=== PATIENT | female | born 1970 | race Caucasian/White ===

== ENCOUNTER 2017-12-26 07:54 | Day surgery (SDC) | payer BC, SELFPAY ==
[2017-12-26] VITALS (7 sets, daily range): BP systolic 97–108; BP diastolic 59–70; PULSE 81–87; RESP 16–18; TEMP 36.5–36.7; O2SAT 99–100; BMI 34.0
[2017-12-26 08:36] LABS: Bedside Glucose 84 mg/dL (70-110)
--- NOTE | 2017-12-26 09:16 | PCM.OPRPT ---
Problem List (1) Left lower quadrant pain Status: Acute Report of Operation Date of Procedure: 12/26/17 Pre-Operative Diagnosis: R10.32 left lower quadrant abdominal pain Post-Operative Diagnosis: Same Surgery/Procedure Performed:: [id number] colonoscopy Type of Anesthesia:: MAC Anesthesiologist: Basilio Muñiz Description of Procedure: Patient was brought into the endoscopy suite and placed in the left lateral decubitus position. Patient was given graded anesthesia. Scope was inserted into the rectum. The scope was directed through the sigmoid colon, descending colon, transverse colon, ascending colon, to the cecum. Operative findings: 1. Cecum: Normal appearance no mass lesions normal ileocecal valve. 2. Ascending colon: Normal appearance no mass lesions. 3. Transverse colon: Normal appearance no mass lesions. 4. descending colon: Normal appearance no mass lesions. 5. Sigmoid colon: Normal appearance no mass lesions. 6. Rectum: Normal appearance no mass lesions retroflexion did show some internal hemorrhoids no masses are identified. Digital rectal exam was performed showing no masses within the anus. Patient will need to have another colonoscopy in 10 years. - Admit VTE Documentation VTE Present on Admission: No VTE Mechan Device Prophylaxis: None VTE Pharm Prophylaxis ordered?: No
--- NOTE | 2017-12-26 09:19 | OP.PCM_ITS ---
Problem List (1) Left lower quadrant pain Status: Acute Report of Operation Date of Procedure: 12/26/17 Pre-Operative Diagnosis: R10.32 left lower quadrant abdominal pain Post-Operative Diagnosis: Same Surgery/Procedure Performed:: [id number] colonoscopy Type of Anesthesia:: MAC Anesthesiologist: Basilio Muñiz Description of Procedure: Patient was brought into the endoscopy suite and placed in the left lateral decubitus position. Patient was given graded anesthesia. Scope was inserted into the rectum. The scope was directed through the sigmoid colon, descending colon, transverse colon, ascending colon, to the cecum. Operative findings: 1. Cecum: Normal appearance no mass lesions normal ileocecal valve. 2. Ascending colon: Normal appearance no mass lesions. 3. Transverse colon: Normal appearance no mass lesions. 4. descending colon: Normal appearance no mass lesions. 5. Sigmoid colon: Normal appearance no mass lesions. 6. Rectum: Normal appearance no mass lesions retroflexion did show some internal hemorrhoids no masses are identified. Digital rectal exam was performed showing no masses within the anus. Patient will need to have another colonoscopy in 10 years. - Admit VTE Documentation VTE Present on Admission: No VTE Mechan Device Prophylaxis: None VTE Pharm Prophylaxis ordered?: No
== END 2017-12-26 09:54 | disposition home or self-care (01) ==
LOC: EN 07:56 → AC 07:57
PROVIDERS: Family Provider Internal Medicine; PCP Internal Medicine; Visit Provider Surgery
PROC: 0DJD8ZZ Inspection of Lower Intestinal Tract, Via Natural or Artificial Opening Endoscopic (ICD-10-PCS; CPT 45378; principal; 2017-12-26 09:25)
DX: K64.8 Other hemorrhoids (principal); R10.32 Left lower quadrant pain; F41.9 Anxiety disorder, unspecified; F32.9 Major depressive disorder, single episode, unspecified; E11.9 Type 2 diabetes mellitus without complications; E78.00 Pure hypercholesterolemia, unspecified; I10 Essential (primary) hypertension; J45.909 Unspecified asthma, uncomplicated; G25.81 Restless legs syndrome; K21.9 Gastro-esophageal reflux disease without esophagitis; E06.9 Thyroiditis, unspecified; Z86.2 Personal history of diseases of the blood and blood-forming organs and certain disorders involving the immune mechanism; Z90.49 Acquired absence of other specified parts of digestive tract; Z87.891 Personal history of nicotine dependence; Z79.84 Long term (current) use of oral hypoglycemic drugs; Z79.899 Other long term (current) drug therapy
CPT/HCPCS: 45378; 82962; J7120; J1610

== ENCOUNTER → 2018-04-22 08:57 | Outpatient (CLI) | payer BC, SELFPAY ==
--- NOTE | 2018-04-22 08:59 | US_ITS ---
STUDY: ULTRASOUND OF THE FEMALE PELVIS - COMPLETE REASON FOR EXAM: Female, 48 years old. Pelvic pain, status post hysterectomy LMP: Not applicable TECHNIQUE: Transabdominal and Transvaginal TECHNICAL QUALITY: Adequate. COMPARISON: Prior study of 08/17/2017 FINDINGS: Uterus is nonvisualized in accordance with hysterectomy. The right ovary is visualized. The right ovary measures 5.2 x 4.4 x 4.5 cm. There is a complex right ovarian mass, predominantly anechoic but containing solid components and septations. This measures 4.0 x 4.1 x 4.3 cm. There is normal arterial and normal venous vascularity. The left ovary is visualized. The left ovary measures 2.4 x 2.1 x 2.3 cm. There is no left ovarian cyst or ovarian mass. There is no visualized left adnexal mass or complex lesion. There is normal arterial and normal venous vascularity. There is no fluid in the cul-de-sac. Polycystic ovary disease: No. US/Pelvic (Non ) IMPRESSION: Status post hysterectomy. Complex right ovarian mass, predominantly anechoic, with solid components and septations. This was not reported on prior study of 08/17/2017. The possibility of malignancy should be considered, and CT and/or MRI is recommended for further evaluation at this time. Electronically Signed: Mynor Schmitt MD at 21:45 EDT , Service support ,
--- NOTE | 2018-04-22 09:00 | US_ITS ---
STUDY: ULTRASOUND OF THE FEMALE PELVIS - COMPLETE REASON FOR EXAM: Female, 48 years old. Pelvic pain, status post hysterectomy LMP: Not applicable TECHNIQUE: Transabdominal and Transvaginal TECHNICAL QUALITY: Adequate. COMPARISON: Prior study of 08/17/2017 FINDINGS: Uterus is nonvisualized in accordance with hysterectomy. The right ovary is visualized. The right ovary measures 5.2 x 4.4 x 4.5 cm. There is a complex right ovarian mass, predominantly anechoic but containing solid components and septations. This measures 4.0 x 4.1 x 4.3 cm. There is normal arterial and normal venous vascularity. The left ovary is visualized. The left ovary measures 2.4 x 2.1 x 2.3 cm. There is no left ovarian cyst or ovarian mass. There is no visualized left adnexal mass or complex lesion. There is normal arterial and normal venous vascularity. There is no fluid in the cul-de-sac. Polycystic ovary disease: No. US/Transvaginal Non- IMPRESSION: Status post hysterectomy. Complex right ovarian mass, predominantly anechoic, with solid components and septations. This was not reported on prior study of 08/17/2017. The possibility of malignancy should be considered, and CT and/or MRI is recommended for further evaluation at this time. Electronically Signed: Mynor Schmitt MD at 21:45 EDT , Service support ,
== END ==
PROVIDERS: Family Provider Internal Medicine; PCP Internal Medicine; Visit Provider Obstetrics & Gynecology
DX: R10.2 Pelvic and perineal pain (principal); G89.29 Other chronic pain
CPT/HCPCS: 76830; 76856; 93976

== ENCOUNTER 2019-10-25 06:36 | Emergency (ER) | payer SELFPAY ==
[2019-10-25 06:36] VITALS: BP 162/100; PULSE 107; RESP 18; TEMP 36.8; O2SAT 99; BMI 34.5; BMI 35.3
[2019-10-25 06:39] VITALS: BP 143/104
--- NOTE | 2019-10-25 06:40 | ED.DCSUM_ITS ---
History of Present Illness Chief Complaint: Cold Sx Informant: Patient Onset: Days Context: Gradual Onset Timing: Continuous Current Severity: Moderate Maximum Severity: Moderate Narrative: The patient is a 49-year-old female with history of [id number] diabetes who presents to the emergency department with 1 week of upper respiratory illness. She states over the past few days, she is had rather significant bilateral facial pain, copious nasal drainage, and frontal headache. She is unsure if she is had fever but does admit to chills and sweats. She den ies any trauma. She denies any visual change. She denies any neck pain. Prior similar symptoms: No Recent Illness/Hospitalization: No Past Medical History - Allergies and Home Meds Allergies/Adverse Reactions: Allergies latex Allergy (Verified 03/13/18 16:00) Rash prednisone Allergy (Verified 03/13/18 16:00) Rash Primary Care Physician: Keeley Lazo MD [Primary Care Provider] - Prior records reviewed: Yes Past Medical History: - - Diabetes Surgical History: no surgical history Smoking Status: Former smoker Review of Systems General: Reports: Chills. Denies: Fever, Sweats Eyes: Denies: Visual changes - bilaterally, Diplopia ENT: Reports: Bilateral ear pain, Rhinorrhea. Denies: Sore throat Cardiovascular: Denies: Chest pain, Palpitations Respiratory: Denies: Dyspnea, Cough, Dyspnea on exertion Gastrointestinal: Denies: Abdominal pain, Nausea, Vomiting, Diarrhea, Melena, Hematochezia Genitourinary: Denies: Dysuria, Hematuria, Frequency Musculoskeletal: Denies: Back pain, Extremity Pain Skin: Denies: Rash, Wounds Neurological: Denies: Headache, Weakness, Numbness Physical Exam Vital Signs/Narrative: Vital Signs Temp Pulse Resp BP Pulse Ox 10/25/19 06:39 143/104 H 10/25/19 06:36 98.2 F 107 H 18 162/100 H 99 Inital Vital Signs reviewed: Yes General: Well nourished, Well developed, No Acute Distress Head: Normocephalic, Atraumatic Eyes: Perrl, EOMI ENT: Moist mucous membranes, Nasal congestion, Sinus tenderness Neck: Supple, Nontender Cardiovascular: Regular rate, Regular rhythm, No murmurs Respiratory: No distress, CTA bilaterally, Chest nontender Abdomen: Soft, Nontender, Nondistended, Normal bowel sounds Back: Nontender, Normal Inspection Extremities: Nontender, No edema Skin: Normal color, No rash Neurological: Alert, Oriented x3, Cranial nerves II-XII grossly intact, Normal Strength, Normal Sensation Psychological: Normal affect, Normal Mood Diagnostic/Tx/Re-eval - Medical Decision Making Clinically, the patient symptoms are consistent with acute sinusitis. She has maxillary and frontal sinus tenderness. She has had chills and has had persistence of symptoms. She is also diabetic. I do feel that the most prudent thing would be to treat her with antibiotics. She is comfortable with this plan of care. She will be discharged home. Impression 1. Acute sinusitis ED Disposition - Plan for ED Patient: Instructions: SINUSITIS, Abx Tx Prescriptions: Amox/Clavulanate Tablet [Augmentin Tablet] 875 mg PO Q12H #20 tab Prescription Printed Benzonatate [Tessalon Perle] 200 mg PO TID PRN PRN #20 cap PRN Reason: Cough Prescription Printed Referrals: Keeley Lazo MD [Primary Care Provider] -
--- NOTE | 2019-10-25 06:58 | ED.RN ---
THIS NURSE REVIEWED D/C INSTRUCTIONS WITH PT. PT VERBALIZED UNDERSTANDING OF INSTRUCTIONS. PT DENIES FURTHER NEEDS OR QUESTIONS AT THIS TIME. PT AMBULATES FROM ROOM ON OWN WITHOUT ASSISTANCE FROM STAFF
== END 2019-10-25 06:59 | disposition home or self-care (01) ==
PROVIDERS: Emergency Provider Emergency Medicine; Family Provider Internal Medicine; PCP Internal Medicine
DX: J01.00 Acute maxillary sinusitis, unspecified (principal); J01.10 Acute frontal sinusitis, unspecified; E11.9 Type 2 diabetes mellitus without complications; Z79.84 Long term (current) use of oral hypoglycemic drugs; Z87.891 Personal history of nicotine dependence
CPT/HCPCS: 99282

== ENCOUNTER 2024-03-06 13:21 | Emergency (ER) | payer SELFPAY ==
[2024-03-06 13:23] VITALS: BP 127/83; PULSE 85; RESP 14; TEMP 35.7; O2SAT 100; O2SAT 97; BMI 32.9
--- NOTE | 2024-03-06 14:07 | EDS_ITS ---
HPI History of Present Illness Chief Complaint: Burn Informant: patient Onset/Context/Timing Onset: Days (4) Context: Gradual Onset Timing: Continuous Quality: Burning Location: Right breast Worsened by: Band-Aid Relieved by: Nothing Narrative Narrative: Patient presents with a burn to her right breast that occurred 3 days ago. Patient states it has been constant. Patient describes the pain as burning. Patient states she is concerned that there could be an infection since she is diabetic. Patient has been using a Band-Aid. Patient states the Band-Aid has been irritating the skin more. Patient denies any fevers or chills. Patient denies any discharge or drainage. Patient denies any chest pain or shortness of breath. Patient denies any nausea or vomiting. Patient is unsure of her last tetanus. [facility] Medical History Abnormal uterine bleeding Anxiety Depression Diabetes mellitus Hyperlipemia Hypertension lymph node removal Home Medications duloxetine 30 mg capsule,delayed release 30 mg PO DAILY 03/18/15 [History Last Taken Unknown] levothyroxine 25 mcg tablet 25 mcg PO DAILY 03/18/15 [History Last Taken 12/26/17 07:00] loratadine 10 mg tablet 10 mg PO DAILY 03/18/15 [History Last Taken Unknown] montelukast 10 mg tablet 10 mg PO DAILY 03/18/15 [History Last Taken Unknown] paroxetine HCl 10 mg tablet 10 mg PO QHS 03/18/15 [History Last Taken 09/15/16 22:00] pravastatin 20 mg tablet 20 mg PO QHS 03/18/15 [History Last Taken Unknown] spironolactone 25 mg tablet 25 mg PO DAILY 03/18/15 [History Last Taken 09/16/16 05:00] albuterol sulfate 90 mcg/actuation aerosol inhaler 1 - 2 puff inhalation Q4H PRN PRN Asthma 09/09/16 [History Last Taken Unknown] naproxen 500 mg tablet 500 mg PO PRN PRN Pain 09/09/16 [History Last Taken Unknown] lisinopril 2.5 mg tablet 2.5 mg PO DAILY 12/23/17 [History Last Taken 12/26/17 07:00] metformin 500 mg tablet 500 mg PO BID 12/23/17 [History Last Taken Unknown] amoxicillin 875 mg-potassium clavulanate 125 mg tablet 875 mg (0.875 x 875-125 mg) PO Q12H #20 tabs 10/25/19 [Rx Last Taken Unknown] benzonatate 100 mg capsule 200 mg (2 x 100 mg) PO TID PRN PRN Cough #20 caps 10/25/19 [Rx Last Taken Unknown] black cohosh 40 mg tablet 40 mg PO DAILY 10/25/19 [History Last Taken Unknown] calcium carb and hydrox 112 ae-aaw-fmern cohosh-melatonin 2 mg tablet 1 ea PO QHS 10/25/19 [History Last Taken Unknown] cephalexin 500 mg capsule 500 mg PO Q6 #40 CAPSULES 03/06/24 [Rx Last Taken Unknown] Allergy/AdvReac Type Severity Reaction Status Date / Time latex Allergy Rash Verified 03/06/24 13:22 prednisone Allergy Rash Verified 03/06/24 13:22 Family History Father Cancer Diabetes Heart disease Arthritis Mother Hypertension High cholesterol Surgical History H/O: hysterectomy Hx of cholecystectomy S/P colonoscopy Social History Smoking Status: Former smoker second hand exposure: No alcohol intake: current details: occasionally substance use type: does not use caffeine: Yes what type of physical activity do you participate in: walking frequency: 3-4 times per week seatbelt use: always do you feel safe at home: Yes additional social history: - - Bianka-Patient Care Director 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[facility] ED Constitutional Constitutional ED: Denies chills or fever(s) Eyes Eyes: Denies blurry vision or change in vision ENT ENT ED: Denies rhinorrhea or sore throat Cardiovascular Cardiovascular: Denies chest pain or palpitations Respiratory/Chest Respiratory/Chest: Denies cough or dyspnea Gastrointestinal Gastrointestinal: Denies nausea or vomiting Genitourinary Genitourinary ED: Denies dysuria or hematuria Musculoskeletal Musculoskeletal: Denies back pain or neck pain Integumentary Denies abscess or rash Neurologic Neurologic: Denies headache(s) or weakness Allergic/Immunologic Allergic/Immunologic ED: Denies mouth swelling or urticaria EXAM Physical Exam Const Vital Signs: 03/06/24 13:23 03/06/24 13:23 Temperature 96.3 F L Temperature Source Temporal Pulse Rate 85 85 Respiratory Rate 14 14 Blood Pressure 127/83 H Blood Pressure Mean 97 Pulse Ox 97 100 Oxygen Delivery Method Room Air Room Air Positive well nourished, well developed and obese General Appearance ED: well developed and NAD Nutritional Appearance: obese Neck supple and no JVD Neuro oriented x3, CN's II-XII intact bilaterally and no sensory deficits noted Sensorium / Orientation: alert Motor Exam: strength 5/5 throughout Psych mental status grossly normal Skin Skin Narrative: There is a burn area over the inferior aspect of the right breast. There is some mild discharge from the central area of the burn to light touch in all areas of the burn. There is no induration noted. MDM MDM MDM Narrative Medical decision making narrative: Patient was advised there could be a secondary infection starting in the burn area. Patient has no signs or symptoms of systemic infection. Patient was given a dose of Keflex here. Patient was given a prescription for Keflex. Patient was given a tetanus booster. Patient was instructed to follow-up with her primary care physician in 5 to 7 days. Patient was instructed to continue using bacitracin dressings to the area. Patient was instructed to return if worse in any way. Patient understood and was agreeable with the plan. All questions were answered. Discharge Plan Triage Chief Complaint: Burn ED Provider: Martin Juarez Dx/Rx/DC Orders Clinical Impression: Second degree burn of right breast, Cellulitis of right breast Instructions: ED Cellulitis, ED Burn, Second-Degree Prescriptions: New cephalexin [cephalexin] 500 mg capsule 500 mg PO Q6 Qty: 40 0RF No Action paroxetine HCl 10 MG tablet 10 mg PO QHS Patient Comments: ANXIETY spironolactone 25 MG tablet 25 mg PO DAILY Patient Comments: BP MED only took 25mg on 09/16/16 levothyroxine 25 MCG tablet 25 mcg PO DAILY Patient Comments: THYROID montelukast 10 MG tablet 10 mg PO DAILY Patient Comments: ALLERGIES pravastatin 20 MG tablet 20 mg PO QHS Patient Comments: CHOLESTEROL loratadine 10 MG tablet 10 mg PO DAILY Patient Comments: ALLERGIES duloxetine 30 MG capsule,delayed release(DR/EC) 30 mg PO DAILY Patient Comments: ANTIDEPRESSANT naproxen 500 MG tablet 500 mg PO PRN PRN (Reason: Pain) albuterol sulfate 1 INHALER inhaler 1 - 2 puff INHALATION Q4H PRN PRN (Reason: Asthma) metformin 500 MG tablet 500 mg PO BID lisinopril 2.5 MG tablet 2.5 mg PO DAILY black cohosh 40 MG tablet 40 mg PO DAILY Ca car,nge-vzh-abgdf-melatonin 1 EACH tablet 1 ea PO QHS benzonatate 100 MG capsule 200 mg PO TID PRN PRN (Reason: Cough) Qty: 20 0RF amoxicillin-pot clavulanate 875 MG tablet 875 mg PO Q12H Qty: 20 0RF Primary Care Provider: Keeley Lazo Referrals: Keeley Lazo MD [Primary Care Provider] - 5-7 Days Disposition Disposition: Home, Self Care
[2024-03-06] MEDS: Cephalexin 500 MG Capsule PO (14:37)
[2024-03-06] MEDS: Diphth,Pertuss(Acell),Tet Vac 0.5 ML Vial IM (14:37)
== END 2024-03-06 14:40 | disposition home or self-care (01) ==
LOC: ED 14:38
PROVIDERS: Emergency Provider Emergency Medicine; PCP Internal Medicine; Visit Provider Emergency Medicine
DX: T21.21XA Burn of second degree of chest wall, initial encounter (principal); E11.9 Type 2 diabetes mellitus without complications; Z87.891 Personal history of nicotine dependence; N61.0 Mastitis without abscess; I10 Essential (primary) hypertension; E78.5 Hyperlipidemia, unspecified; E66.9 Obesity, unspecified; X19.XXXA Contact with other heat and hot substances, initial encounter
CPT/HCPCS: 90715; 99282